=== PATIENT | male | born 1955 | race Caucasian/White ===

== ENCOUNTER 2024-02-23 12:12 | Outpatient (CLI) | payer OTHER, SELFPAY ==
--- NOTE | ~2024-02-23 | PE_ITS ---
EXAMINATION: PET_PETPSMAST_PT DATE: 02/23/2024 14:44 INDICATION: Malignant neoplasm of the prostate TECHNIQUE: 5.028 mCi of Locametz Ga-68([id number]) was administered i.v. Low dose computed nathaly ography (CT) images were acquired from the base of the brain to the base of the brain to the proximal thighs for attenuation correction and anatomic localization. Positron emission tomography (PET) imag es were acquired in the same distribution beginning 74 minutes after injection. Images including fuse d PET/CT images were reconstructed in axial, coronal, and sagittal planes. Automated exposure control technique was employed. The dose-length product was 1202.39mGy-cm. COMPARISON: None FINDINGS: Head/neck: Typical pattern of relatively symmetric physiologic increased activity in the lacrimal, parotid and s ubmandibular glands as well as along the mucosa of the nasal and oral cavities, pharynx and hypophary nx. No pathologically enlarged cervical lymphadenopathy or suspicious foci of increased uptake in the visualized head or neck. Chest: Mild discoid atelectasis in the bilateral lower lobes. No suspicious pulmonary nodules, pneumonia, pu lmonary edema or pleural effusion. Heart size normal. Atherosclerotic coronary artery calcification. Postoperative change of prior median sternotomy and coronary artery bypass grafting. Thoracic aorta i s normal in caliber. No pathologically enlarged or PSMA avid thoracic lymphadenopathy. Abdomen/pelvis/proximal thighs: Physiologic renal accumulation and excretion of activity in the kidneys, bladder and along portions o f ureters. There is a large region of marked PSMA uptake with maximal SUV of 45.6 consistent with [facility] reg prostate cancer in the central and left aspect of the enlarged prostate. The PSMA activity exten ds cephalad into the left seminal vesicle the base which is relatively enlarged compared with the rig ht seminal vesicle consistent with local invasion. There are a couple PSMA avid obturator lymph nodes measuring 8 mm with maximal SUV of 14.7 on the right and measuring 12 mm with maximal SUV of 33.3 on the left. Normal degree and slightly heterogenous pattern of increased uptake throughout the liver a nd spleen without radiologic correlate or dominant PSMA avid lesion. There is nodular contour to the liver with hypertrophy of the caudate and left hepatic lobe and atrophy of the posterior segment of t he right hepatic lobe consistent with cirrhosis. The gallbladder, pancreas and bilateral adrenal glan ds are normal. Moderate uptake scattered throughout the bowels with typical duodenal and proximal jej unal predominance and without radiologic correlate, also likely physiologic. Normal appendix. No othe r abnormal foci of increased uptake or pathologically enlarged lymphadenopathy in the abdomen, pelvis or proximal thighs. Musculoskeletal: Moderate to severe spondylosis throughout the spine. Thoracic kyphosis with bridging osteophytes at m ultiple levels in the cervical, thoracic and lumbar spine consistent with diffuse idiopathic skeletal hyperostosis (DISH). No suspicious lytic, blastic or PSMA avid bone lesions. IMPRESSION: 1. Large region of increased PSMA uptake in the central left sides of the prostate which extends into the left seminal vesicle consistent with local invasion. 2. A couple PSMA avid bilateral obturator lymph nodes consistent with regional metastatic disease. 3. Cirrhosis. Reviewed, dictated and finalized at location A. IMPRESSION: 1. Large region of increased PSMA uptake in the central left sides of the prost ate which extends into the left seminal vesicle consistent with local invasion. 2. A couple PSMA avid bilateral obturator lymph nodes consistent with regional metastatic disease. 3. Cirrhosis.
== END 2024-02-23 12:13 | disposition home or self-care (01) ==
LOC: ANHIMG 12:13
PROVIDERS: Visit Provider Urology
DX: C61 Malignant neoplasm of prostate (principal); K74.69 Other cirrhosis of liver
CPT/HCPCS: 78815; A9596